=== PATIENT | female | born 1960 | race Caucasian/White ===

== ENCOUNTER 2017-05-18 09:39 | Emergency (ER) | payer BC ==
[2017-05-18 09:50] VITALS: BMI 26.2
[2017-05-18 09:51] VITALS: RESP 18; O2SAT 100
--- NOTE | 2017-05-18 12:01 | RAD ---
PROCEDURE: Right Ankle Radiographs. HISTORY: r/o fx COMPARISON: None available. FINDINGS: BONES: No acute displaced fracture. JOINTS: No dislocation. SOFT TISSUES: Soft tissue swelling. No evidence of radiopaque foreign body. OTHER FINDINGS: None. IMPRESSION: Soft tissue swelling. No acute displaced fracture or dislocation identified. If symptoms persist or if there is clinical concern, x-ray follow-up in 7-10 days should be considered.
[2017-05-18 12:22] VITALS: BP 122/76; PULSE 72; TEMP 98.1
--- NOTE | 2017-05-18 14:31 | C.PDOC ---
History Of Present Illness 56 y/o female presents to the ER complaining of right ankle pain which has been present for the past 3 days. Patient denies calf tenderness and numbness to the ankle. Patient also denies tripping, falling, and any twisting motions. Chief Complaint (Nursing): Lower Extremity Problem/Injury History Per: Patient History/Exam Limitations: no limitations Onset/Duration Of Symptoms: Days Current Symptoms Are (Timing): Still Present Severity: Moderate Past Medical History Reviewed: Historical Data, Nursing Documentation, Vital Signs Vital Signs: Last Vital Signs Temp 98.1 F 05/18/17 12:20 Pulse 72 05/18/17 12:20 Resp 18 05/18/17 12:20 BP 122/76 05/18/17 12:20 Pulse Ox 100 05/18/17 14:44 - Medical History PMH: Arthritis, Seizures Surgical History: Denies: Pacemaker - [facility] Procedures COLONOSCOPY (11/29/14) Family History: States: No Known Family Hx - Social History Hx Tobacco Use: No Hx Alcohol Use: No Hx Substance Use: No - Immunization History Hx Tetanus Toxoid Vaccination: No Hx Influenza Vaccination: No Hx Pneumococcal Vaccination: No Review Of Systems Except As Marked, All Systems Reviewed And Found Negative. Musculoskeletal: Positive for: Other (right ankle pain) Neurological: Negative for: Weakness, Numbness Physical Exam - Physical Exam Appears: Non-toxic, No Acute Distress Skin: Normal Color, Warm Head: Atraumatic, Normacephalic Eye(s): bilateral: Normal Inspection Nose: Normal Oral Mucosa: Moist Neck: Supple Chest: Symmetrical Cardiovascular: Rhythm Regular Respiratory: Normal Breath Sounds, No Accessory Muscle Use, No Rales, No Rhonchi , No Wheezing Extremity: Normal ROM, Tenderness (tenderness in the lateral malleolus of right ankle), Swelling (lateral swelling of right ankle) Neurological/Psych: Oriented x3, Normal Speech, Normal Motor, Normal Sensation ED Course And Treatment O2 Sat by Pulse Oximetry: 100 (RA) Pulse Ox Interpretation: Normal - Other Rad No standard instances X-Ray: Viewed By Me, Read By Radiologist Interpretation: PROCEDURE: Right Ankle Radiographs. HISTORY: r/o fx. COMPARISON: None available. FINDINGS: BONES: No acute displaced fracture. JOINTS: No dislocation. SOFT TISSUES: Soft tissue swelling. No evidence of radiopaque foreign body. OTHER FINDINGS: None. IMPRESSION: Soft tissue swelling. No acute displaced fracture or dislocation identified. If symptoms persist or if there is clinical concern, x-ray follow-up in 7-10 days should be considered. Progress Note: X - ray shows no fracture or dislocation. Patient has been discharged and told to follow up with doctor in 2-3 days. Disposition - Disposition Referrals: Jaime Berry, [Non-Staff] - Disposition: HOME/ ROUTINE Disposition Time: 12:00 Condition: GOOD Additional Instructions: Thank you for letting us take care of you today. The emergency medical care you received today was directed at your acute symptoms. If you were prescribed any medication, please fill it and take as directed. It may take several days for your symptoms to resolve. Return to the Emergency Department if your symptoms worsen, do not improve, or if you have any other problems. Please contact your doctor or call one of the physicians/clinics you have been referred to that are listed on the Patient Visit Information form that is included in your discharge packet. Bring any paperwork you were given at discharge with you along with any medications you are taking to your follow up visit. Our treatment cannot replace ongoing medical care by a primary care provider (PCP) outside of the emergency department. Thank you for allowing the [facility] team to be part of your care today. Follow up with your doctor in 2-3 days for re-evaluation and further management. Prescriptions: Ibuprofen [Motrin] 600 mg PO Q6 PRN #20 tab PRN Reason: Pain, Moderate (4-7) Instructions: Ankle Sprain (ED) Forms: Work Excuse - Clinical Impression Clinical Impression: Ankle sprain - Scribe Statement The provider has reviewed the documentation as recorded by the Rina Hinds Provider Attestation: All medical record entries made by the Nuryibmatt were at my direction and personally dictated by me. I have reviewed the chart and agree that the record accurately reflects my personal performance of the history, physical exam, medical decision making, and the department course for this patient. I have also personally directed, reviewed, and agree with the discharge instructions and disposition.
== END 2017-05-18 12:25 | disposition home or self-care (01) ==
LOC: C.ER 09:39
DX: S93.401A Sprain of unspecified ligament of right ankle, initial encounter (principal); X58.XXXA Exposure to other specified factors, initial encounter

== ENCOUNTER 2017-12-11 23:10 | Emergency (ER) | payer BC ==
[2017-12-11 23:11] VITALS: BMI 26.2
--- NOTE | 2017-12-12 01:13 | C.PDOC ---
History Of Present Illness 57 year old female presents to the emergency department experiencing left calf swelling over the past week. Patient states that she has a bunionectomy 7 weeks ago and has been walking with a boot since then. Patient states that she was seen at a different hospital for the same problem, where a US Doppler of the leg was done and was found to be negative for DVT. She denies trauma, redness, numbness, weakness, chest pain, and shortness of breath. Time Seen by Provider: 12/11/17 23:37 Chief Complaint (Nursing): Lower Extremity Problem/Injury History Per: Patient History/Exam Limitations: no limitations Onset/Duration Of Symptoms: Other Past Medical History Reviewed: Historical Data, Nursing Documentation, Vital Signs Vital Signs: Last Vital Signs Temp 98.0 F 12/12/17 03:03 Pulse 73 12/12/17 03:03 Resp 16 12/12/17 03:03 BP 129/70 12/12/17 03:03 Pulse Ox 99 12/12/17 03:28 - Medical History PMH: Arthritis, Seizures Surgical History: Denies: Pacemaker Other Surgeries: Bunionectomy - [facility] Procedures COLONOSCOPY (11/29/14) Family History: States: No Known Family Hx - Social History Hx Tobacco Use: No Hx Alcohol Use: No Hx Substance Use: No - Immunization History Hx Tetanus Toxoid Vaccination: No Hx Influenza Vaccination: No Hx Pneumococcal Vaccination: No Review Of Systems Except As Marked, All Systems Reviewed And Found Negative. Cardiovascular: Negative for: Chest Pain Respiratory: Negative for: Shortness of Breath Musculoskeletal: Positive for: Other (left calf swelling) Neurological: Negative for: Weakness, Numbness Physical Exam - Physical Exam Appears: Non-toxic, No Acute Distress Skin: Warm, Dry Head: Atraumatic, Normacephalic Eye(s): bilateral: Normal Inspection Neck: Normal, Supple Chest: Symmetrical, No Tenderness Cardiovascular: Rhythm Regular, No Murmur Respiratory: No Rales, No Rhonchi, No Wheezing Gastrointestinal/Abdominal: Soft, No Tenderness, No Guarding, No Rebound Extremity: Normal ROM, Capillary Refill (< 2 seconds), Swelling (2+ edema to the left calf and lower leg. ), Other (healed, sutured wound to the left great toe. NO erythema. ) Extremity: Bilateral: Normal Color And Temperature Neurological/Psych: Oriented x3, Normal Speech, Normal Cognition ED Course And Treatment O2 Sat by Pulse Oximetry: 99 (RA) Pulse Ox Interpretation: Normal Progress Note: Plan: CT Lower Extremity. Venous Duplex is negative for DVT. CT abd performed to see possible abscess, abnormalities in the comparts. CT is unremarkable/ Disposition - Disposition Referrals: [facility] [Outside] Disposition: HOME/ ROUTINE Disposition Time: 03:26 Condition: GOOD Additional Instructions: Follow up with the medical doctor within 1-2 days. Return if worsened. 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 - Scribe Statement The provider has reviewed the documentation as recorded by the Scribe (Thong Galan) All medical record entries made by the Scribe were at my direction and personally dictated by me. I have reviewed the chart and agree that the record accurately reflects my personal performance of the history, physical exam, medical decision making, and the department course for this patient. I have also personally directed, reviewed, and agree with the discharge instructions and disposition.
[2017-12-12 03:04] VITALS: BP 129/70; PULSE 73; RESP 16; TEMP 98
[2017-12-12 03:28] VITALS: O2SAT 99
--- NOTE | 2017-12-12 16:21 | CT ---
CT left foot History: Swelling. Pain. Comparison: None available. Technique: Multiple contiguous axial images were performed through the left foot without the use of intravenous contrast. Subsequently, sagittal and coronal reformatted images were obtained. Findings: Screw fixation across postoperative changes of the 1st metatarsal bone. Lucency noted at the base of the 1st metatarsal bone as seen on series 6 images 22 through 28 which may be postsurgical. Clinical correlation. Prominent degenerative changes at the 1st metatarsus sesamoid joint space. Curvilinear lucency seen at the lateral aspect of the calcaneus on series 3, image 57 and series 601, image 81. This is of uncertain clinical etiology. If there is concern for osseous injury at this level, consider correlation with MRI. Soft tissue edema over the dorsum of the foot. Additional soft tissue swelling seen at the volar aspect of the posterior calcaneus. Diffuse osteopenia. Dorsal calcaneal spurring. Impression: Screw fixation across postoperative changes of the 1st metatarsal bone. Lucency noted at the base of the 1st metatarsal bone as seen on series 6 images 22 through 28 which may be postsurgical. Clinical correlation. Prominent degenerative changes at the 1st metatarsus sesamoid joint space. Curvilinear lucency seen at the lateral aspect of the calcaneus on series 3, image 57 and series 601, image 81. This is of uncertain clinical etiology. If there is concern for osseous injury at this level, consider correlation with MRI. Soft tissue edema over the dorsum of the foot. Additional soft tissue swelling seen at the volar aspect of the posterior calcaneus. These findings were preliminarily reported at 2:49 a.m. on 12/12/[address] Shan Whitaker from [facility].
== END 2017-12-12 03:38 | disposition home or self-care (01) ==
LOC: C.ER 23:10
DX: M79.89 Other specified soft tissue disorders (principal)

== ENCOUNTER 2018-01-01 14:00 | Emergency (ER) | payer BC ==
[2018-01-01 14:05] VITALS: BMI 26.6
[2018-01-01 14:12] VITALS: BP 152/81; PULSE 97; RESP 18; TEMP 98.4; O2SAT 99
--- NOTE | 2018-01-01 15:44 | C.PDOC ---
History Of Present Illness 57-year-old female presents to the ED complaining of persistent swelling and pain to the left leg for the past 2-3 weeks. Of note patient underwent bunionectomy and hammer toe surgery with Dr. Holley in October. She reports she was evaluated by the [facility] case manager hospice and had Doppler ultrasound, which was negative for DVT. Patient was also seen and evaluated here 2 weeks ago for same complaint, and had unremarkable imaging. She then followed up with Dr. Holley this week and was given a referral to see a "Dr. Morfin for further work-up. O james patient denies any fever, chills, numbness, tingling, or redness to site. There is no drainage from the incision. Time Seen by Provider: 01/01/18 14:19 Chief Complaint (Nursing): Lower Extremity Problem/Injury History Per: Patient History/Exam Limitations: no limitations Onset/Duration Of Symptoms: Persistent Current Symptoms Are (Timing): Still Present Past Medical History Reviewed: Historical Data, Nursing Documentation, Vital Signs Vital Signs: Last Vital Signs Temp 98.4 F 01/01/18 14:05 Pulse 97 H 01/01/18 14:05 Resp 18 01/01/18 14:05 BP 152/81 H 01/01/18 14:05 Pulse Ox 99 01/01/18 14:05 - Medical History PMH: Arthritis, Seizures Surgical History: Denies: Pacemaker - [facility] Procedures COLONOSCOPY (11/29/14) Family History: States: Unknown Family Hx - Social History Hx Tobacco Use: No Hx Alcohol Use: No Hx Substance Use: No - Immunization History Hx Tetanus Toxoid Vaccination: No Hx Influenza Vaccination: No Hx Pneumococcal Vaccination: No Review Of Systems Except As Marked, All Systems Reviewed And Found Negative. Constitutional: Negative for: Fever, Chills Musculoskeletal: Positive for: Foot Pain (and swelling) Skin: Negative for: Rash Neurological: Negative for: Weakness, Numbness, Other (tingling) Physical Exam - Physical Exam Appears: Well, Non-toxic, No Acute Distress Skin: Warm, Dry, No Rash Head: Atraumatic, Normacephalic Eye(s): bilateral: Normal Inspection Neck: Normal ROM Chest: Symmetrical Respiratory: No Accessory Muscle Use, Other (speaking in full sentences) Extremity: Normal ROM, Tenderness (minimal), Capillary Refill (less than 2 sec to all toes), Swelling (Minimal swelling to the left ankle) Pulses: Left Dorsalis Pedis: Normal, Right Dorsalis Pedis: Normal Neurological/Psych: Oriented x3, Normal Speech ED Course And Treatment O2 Sat by Pulse Oximetry: 99 (RA) Pulse Ox Interpretation: Normal Medical Decision Making Medical Decision Making: Impression: Left foot swelling and pain Plan: * x-ray * podiatry consult Progress/Updates: 3:52pm Podiatry resident DR Bernard at bedside, evaluating patient in the ED, and recommends patient be discharged home with instructions to wear compression socks. As per podiatry resident, patient has history of vascular procedure done on the same leg and she has been referred to follow up with Dr. Craig, vascular specialist. 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 - Scribe Statement The provider has reviewed the documentation as recorded by the Scribe (Shelby Bryan) All medical record entries made by the Scribe were at my direction and personally dictated by me. I have reviewed the chart and agree that the record accurately reflects my personal performance of the history, physical exam, medical decision making, and the department course for this patient. I have also personally directed, reviewed, and agree with the discharge instructions and disposition.
--- NOTE | 2018-01-01 16:15 | RAD ---
Indication: Pain to foot s.p bunionectomy Comparison: None available Findings: AP, lateral, and oblique views of the left foot demonstrate evidence of recent 1st metatarsal osteotomy for bunionectomy with plate and screw fixation providing stabilization at the osteotomy. No significant callus formation is identified at this time. Impression: Evidence of recent bunionectomy involving the left foot with very little callus formation at this time.
--- NOTE | 2018-01-01 16:37 | CP.PCM.CON ---
History of Present Illness - History of Present Illness History of Present Illness: Podiatry Consult Note: Dr. Holley 57 year old female with PMHx of arthritis, anxiety, and seizures presents to the ED complaining of persistent swelling and pain to the left foot. Patient reports that she's had the swelling to the leg for about 2-3 weeks now. Patient also complaining of pain to the foot today. Admits that she was seen by Dr. Holley yesterday in his office who recommended her to go to physical therapy. Patient states that she is not concerned with the pain as much as the swelling because she is unable to wear any shoes. 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 Patient also reports that she was given a prescription to be evaluated by Dr. Craig (Vascular) in his office for the persistent swelling. Patient reports that she has not made the appointment to see the vascular doctor yet. Patient reports that she was also given compression socks to be worn at all times. Patient admits that she was given a compression dressing at his office but she did not like it so she took it off. Patient reports that she was also seen in the ED for the swelling and was evaluated for DVT 2 weeks ago. States that she was told her duplex was negative for DVT. Patient denies of any recent F/N/V/C/SOB/CP/headache. Patient denies of any other pedal complains at this time. PMHx: Arthritis, Seizures, Anxiety PSHx: Left leg vein procedure (approx 2 years ago), Hysterectomy, Gall stone removal Allergies: N.K.D.A SHx: Denies smoking, EtOH or illicit drug usage Review of Systems - Constitutional Constitutional: As Per HPI Past Patient History - Infectious Disease Hx of Infectious Diseases: None - Past Social History Smoking Status: Never Smoked - CARDIAC Hx Pacemaker: No - NEUROLOGICAL Hx Seizures: Yes - HEMATOLOGICAL/ONCOLOGICAL Hx Blood Transfusions: No - MUSCULOSKELETAL/RHEUMATOLOGICAL Hx Arthritis: Yes - PSYCHIATRIC Hx Substance Use: No - SURGICAL HISTORY Hx Surgeries: Yes Hx Hysterectomy: Yes Other/Comment: kidney stone sx,bunionectomy - ANESTHESIA Hx Anesthesia: Yes Hx Anesthesia Reactions: No Meds Home Medications: Home Medication List Medication Instructions Recorded Confirmed Type Furosemide [Lasix] 20 mg PO DAILY #30 tab 01/01/18 Rx Allergies/Adverse Reactions: Allergies Allergy/AdvReac Type Severity Reaction Status Date / Time No Known Allergies Allergy Verified 01/01/18 14:05 Physical Exam - Constitutional Appears: Well, Non-toxic, No Acute Distress - Extremities Exam Additional comments: Bilateral LE exam VASC: DP/PT pulses are palpable 2/4, Cap refill time: < 3 sec to all digits, Temp gradient: warm to cool from proximal to distal, mild non-pitting edema noted on bilateral LE (L>R) on the lateral aspect of the foot and ankle DERM: Surgical cicatrix noted on the medial aspect of the left foot dorsal to the 1st metatarsal base/shaft, no open wounds, no active drainage, no erythema, no clinical suspicion of active infection NEURO: Protective sensation grossly intact ORTHO: minimal pain during PROM of the 1st ray, no pain during PROM of the 1st MTPJ or AJ, MMT: 5/5 in all 4 direction, no pain during palpation of the calf - Neurological Exam Neurological exam: Alert, Oriented x3 - Psychiatric Exam Psychiatric exam: Normal Affect, Normal Mood Results - Vital Signs Recent Vital Signs: Last Vital Signs Temp 98.4 F 01/01/18 14:05 Pulse 97 H 01/01/18 14:05 Resp 18 01/01/18 15:59 BP 152/81 H 01/01/18 14:05 Pulse Ox 99 01/01/18 15:56 Assessment & Plan - Assessment and Plan (Free Text) Assessment: 57 year old female with PMHx of arthritis, anxiety and seizures was evaluated for left LE swelling Plan: Patient seen and evaluated Discussed plan with attending Dr. Holley Vitals and charts reviewed Left foot x-rays ordered/reviewed - hardware in proper alignment with no backing out, no acute fractures or dislocations noted Venous duplex reviewed - no evidence of DVT Patient educated the etiology of the swelling - educated the swelling is normal up to 6 to 12 months after a surgery Educated patient the swelling could be attributed to the venous procedure performed on the left leg Educated patient prolong period of standing (due to her work) can also attribute to the swelling on bilateral LE Educated patient of the RICE protocol Educated patient of the compressive dressing - patient denies of the dressing at this time Educated patient to wear a compression socks at all times, specially during weight bearing Rx: HCTZ for a week Educated patient to make an appointment with the Vascular doctor (Dr. Craig) as advised Patient demonstrated verbal understanding of the plan Thank you for the podiatry consult and allowing to take part in patient care - Date & Time Date: 01/01/18 Time: 16:49
== END 2018-01-01 16:11 | disposition home or self-care (01) ==
LOC: C.ER 14:00
DX: M79.89 Other specified soft tissue disorders (principal); M79.672 Pain in left foot

== ENCOUNTER 2018-06-04 15:42 | Outpatient (CLI) | payer BC | END 2018-06-04 15:43 | disposition home or self-care (01) | LOC: C.MAMMO 15:42 | DX: Z12.31 Encounter for screening mammogram for malignant neoplasm of breast (principal) ==